=== PATIENT | male | born 2000 | race Hispanic/Latino ===

== ENCOUNTER 2021-10-15 08:55 | Emergency (ER) | payer BC ==
[2021-10-15 08:59] VITALS: BP 122/67
[2021-10-15] MEDS ORDERED: KETOROLAC 15MG/ML VIAL (15MG/ML) IV ONE (09:30)
[2021-10-15] MEDS ORDERED: ACET1TAB25 PO (10:09)
[2021-10-15] MEDS ORDERED: IBUP-2070 PO (10:09)
== END 2021-10-15 10:44 | disposition home or self-care (01) ==
LOC: EDH 08:55
DX: S73.192A Other sprain of left hip, initial encounter (principal); W01.0XXA Fall on same level from slipping, tripping and stumbling without subsequent striking against object, initial encounter; Y93.89 Activity, other specified; Y92.89 Other specified places as the place of occurrence of the external cause; Y99.8 Other external cause status
CPT/HCPCS: 73502; 96374; 99284; J1885